=== PATIENT | male | born 1980 | race Caucasian/White ===

== ENCOUNTER 2018-01-02 15:47 | Emergency (ER) | payer BC, OTHER ==
--- NOTE | 2018-01-02 16:20 | CPEKG ---
Heart Rate: 84 RR Interval: 714 P-R Interval: 212 QRSD Interval: 86 QT Interval: 348 QTC Interval: 412 P [place]: 60 QRS [place]: 67 T Wave [place]: 35 EKG Severity - ABNORMAL ECG - EKG Impression: SINUS RHYTHM EKG Impression: FIRST DEGREE AV BLOCK Electronically Signed By: Terell Oviedo 02-Jan-2018 17:37:08
[2018-01-02] MEDS ORDERED: NS 1,000 ML IV ONE (16:37)
--- NOTE | 2018-01-02 16:37 | EDPHY ---
H & P Time Seen by Provider: 01/02/18 16:11 HPI/ROS: Chief complaint. Chest tightness HPI. 37-year-old male was playing soccer and had been playing for about 5 min today he then felt his heart was pounding he felt lightheaded and dizzy. [place] slight shortness of breath. Has some central chest tightness. No radiation. No wheezing. He does have exercise-induced asthma did duct feel like he was wheezing but used a friend's inhaler without change. His chest tightness is not worse with breathing, movement, exertion. He tells me he is nursing a pretty bad hangover today. He exercises quite regularly and never has chest discomfort. No unusual leg pain or swelling. ROS Constitutional. no fever/chills, no weakness Eyes. no problems with vision ENT. no sore throat, no nasal drainage Cardiovascular. Chest tightness Respiratory. Shortness of breath Abdominal. no abdominal pain, no nausea/vomiting, no diarrhea . no problems urinating MS. no calf pain/swelling, no neck/back pain, no joint pain Skin. no rash Lymph. no swollen glands Neuro. no headache, no dizziness, no difficulty walking or with speech Past Medical/Surgical History: Exercise induced asthma Family history negative for early coronary artery disease Social History: Single, nonsmoker, recent alcohol Smoking Status: Never smoked Physical Exam: General Appearance: Alert well-developed male mild distress vital signs are stable Eyes: Pupils equal and round no pallor or injection. ENT, Mouth: Mucous membranes are moist. Respiratory: There are no retractions, lungs are clear to auscultation. Cardiovascular: Regular rate and rhythm. Gastrointestinal: Abdomen is soft and nontender, no masses, bowel sounds normal. Neurological: Awake and alert, sensory and motor exams grossly normal. Skin: Warm and dry, no rashes. Musculoskeletal: Neck is supple nontender. Extremities symmetrical, full range of motion. Psychiatric: Patient is oriented X 3, there is no agitation. Constitutional: Initial Vital Signs Temperature (C) 36.5 C 01/02/18 15:50 Heart Rate 99 01/02/18 15:50 Respiratory Rate 18 01/02/18 15:50 Blood Pressure 161/95 H 01/02/18 15:50 O2 Sat (%) 96 01/02/18 15:50 O2 Delivery Mode Room Air Allergies/Adverse Reactions: No Known Allergies Allergy (Verified 01/02/18 15:51) Home Medications: Medication Instructions Recorded NK [No Known Home Meds] 01/02/18 Medical Decision Making - Diagnostics EKG Interpretation: EKG interpreted by me shows normal sinus rhythm with first-degree AV block. Normal axis. QRS is otherwise normal there is no significant ST elevation or depression. There is no arrhythmia. The rate is 84 Procedures: IV normal saline, monitor ED Course/Re-evaluation: Re-evaluation 5:55 p.m.. Patient is stable and has no symptoms. The patient and I discussed laboratory evaluation and EKG findings. We discussed treatment plan including criteria for return importance of follow-up and further evaluation. He expresses understanding and agreement Differential Diagnosis: Chest tightness with a few minutes of playing soccer. The patient exercises regularly without symptoms. I do not think that this is acute coronary syndrome. He has no symptoms now. He does have exercise-induced asthma and there may have been some component of this though the nebulizer that he use did not make a significant difference he felt. I think the patient is safe to be treated as an outpatient. He has no risk factors for early coronary artery disease. - Data Points Laboratory Results: Laboratory Results 01/02/18 16:20 01/02/18 16:20 01/02/18 01/02/18 16:20 16:20 WBC 5.44 10^3/uL 10^3/uL (3.80-9.50) RBC 5.34 10^6/uL 10^6/uL (4.40-6.38) Hgb 16.7 g/dL g/dL (13.7-17.5) Hct 47.3 % % (40.0-51.0) MCV 88.6 fL fL (81.5-99.8) MCH 31.3 pg pg (27.9-34.1) MCHC 35.3 g/dL g/dL (32.4-36.7) RDW 11.9 % % (11.5-15.2) Plt Count 158 10^3/uL 10^3/uL (150-400) MPV 10.8 fL fL (8.7-11.7) Neut % (Auto) 57.8 % % (39.3-74.2) Lymph % (Auto) 30.0 % % (15.0-45.0) [place] % (Auto) 8.8 % % (4.5-13.0) Eos % (Auto) 2.4 % % (0.6-7.6) Baso % (Auto) 0.6 % % (0.3-1.7) Nucleat RBC Rel Count 0.0 % % (0.0-0.2) Absolute Neuts (auto) 3.15 10^3/uL 10^3/uL (1.70-6.50) Absolute Lymphs (auto) 1.63 10^3/uL 10^3/uL (1.00-3.00) Absolute Monos (auto) 0.48 10^3/uL 10^3/uL (0.30-0.80) Absolute Eos (auto) 0.13 10^3/uL 10^3/uL (0.03-0.40) Absolute Basos (auto) 0.03 10^3/uL 10^3/uL (0.02-0.10) Absolute Nucleated RBC 0.00 10^3/uL 10^3/uL (0-0.01) Immature Gran % 0.4 % % (0.0-1.1) Immature Gran # 0.02 10^3/uL 10^3/uL (0.00-0.10) Sodium 142 mEq/L mEq/L (135-145) Potassium 4.0 mEq/L mEq/L (3.3-5.0) Chloride 100 mEq/L mEq/L (97-110) Carbon Dioxide 28 mEq/l mEq/l (22-31) Anion Gap 14 mEq/L mEq/L (8-16) BUN 17 mg/dL mg/dL (7-23) Creatinine 1.0 mg/dL mg/dL (0.7-1.3) Estimated GFR > 60 Glucose 100 mg/dL mg/dL (70-100) Calcium 9.2 mg/dL mg/dL (8.5-10.4) Troponin I < 0.012 ng/mL ng/mL (0.000-0.034) Lipase 65 IU/L IU/L (23-300) Medications Given: Discontinued Medications Sodium Chloride (Ns) 1,000 mls @ 0 mls/hr IV EDNOW ONE; Wide Open PRN Reason: Protocol Stop: 01/02/18 16:38 Last Admin: 01/02/18 16:49 Dose: 1,000 mls Sodium Chloride (Ns) 1,000 mls @ 0 mls/hr IV EDNOW ONE; Wide Open PRN Reason: Protocol Stop: 01/02/18 16:38 Last Admin: 01/02/18 16:50 Dose: Not Given Departure - Departure Disposition: Home, Routine, Self-Care Clinical Impression: Chest pain Qualifiers: Chest pain type: unspecified Qualified Code(s): R07.9 - Chest pain, unspecified Condition: Good Instructions: Chest Pain (ED) Additional Instructions: Easy activity rest of the day. Drink plenty of fluids and stay hydrated. Regular sleep. Return for further chest discomfort or trouble breathing. Recheck in 1-2 days for any continuing symptoms. Referrals: Carri Tristan MD [Primary Care Provider] - 1 day, if not improved
[2018-01-02] MEDS ORDERED: ASPIRIN 81 MG CHEWABLE TAB ONE (16:44)
[2018-01-02] MEDS: NS 1,000 ML IV ONE (16:49)
[2018-01-02 16:50] LABS: PLATELET COUNT 158 10^3/uL (150-400)
[2018-01-02 18:37] VITALS: BP 130/108
== END 2018-01-02 18:37 | disposition home or self-care (01) ==
DX: R07.9 Chest pain, unspecified (principal); E86.9 Volume depletion, unspecified

== ENCOUNTER → 2018-08-17 | Outpatient (CLI) | payer OTHER | END | disposition home or self-care (01) | LOC: GIMAGING 15:07 → EDSTATUS 16:06 | PROVIDERS: ATTEND Family Medicine | DX: R10.84 Generalized abdominal pain (principal) | CPT/HCPCS: 74018-PO ==